=== PATIENT | male | born 1945 | race Caucasian/White ===

== ENCOUNTER → 2019-02-06 | Outpatient (CLI) | payer MEDICARE, OTHER | END | disposition home or self-care (01) | LOC: LAB SRC 10:00 → LAB SHORT 10:00 | DX: J34.89 Other specified disorders of nose and nasal sinuses (principal) | CPT/HCPCS: 87070; 87077; 87147; 87186 ==

== ENCOUNTER 2024-11-07 10:10 | Inpatient (IN) | payer MEDICARE, OTHER ==
[~2024-11-07] VITALS: Ht 172.7 cm; Wt 101.5 kg
[~2024-11-07 10:10] MED LIST: ATOR40TA PO; Bisoprolol Fumar5 MG PO; CAND32 PO; ELIQUIS5 M2 PO; FURO40 PO; Imitrex25 MG PO; Inderal40 MG PO; LEVO-T50 MCG PO; ROPI.25 PO; SUMA25 PO
[2024-11-07 11:35] LABS: BASOPHILS ABSOLUTE AUTO 0.06 K/mm3 (0.00-0.23); BASOPHILS PERCENT AUTO 1 % (0-2); EOSINOPHILS ABSOLUTE AUTO 0.32 K/mm3 (0.00-0.68); EOSINOPHILS PERCENT AUTO 4 % (0-6); Hematocrit 45.1 % (37.0-53.0); IMMATURE GRAN ABSOLUTE AUTO 0.04 K/mm3 (0.00-0.10); IMMATURE GRAN PERCENT AUTO 1 % (0-1); LYMPHOCYTES ABSOLUTE AUTO 1.57 K/mm3 (0.84-5.20); LYMPHOCYTES PERCENT AUTO 18 % (21-46); MONOCYTES PERCENT AUTO 9 % (4-13); Mean Corpuscular HGB 29.3 pg (26.0-34.0); Mean Corpuscular HGB Conc 33.3 g/dL (31.5-36.5); Mean Corpuscular Volume 88 fL (80-100); Mean Platelet Volume 9.9 fL (9.1-12.4); NEUTROPHILS ABSOLUTE AUTO 5.99 K/mm3 (1.96-9.15); NEUTROPHILS PERCENT AUTO 68 % (41-73); Platelet Count 178 K/mm3 (150-400); RDW Coefficient Variation 14.6 % (11.7-14.2); RDW Standard Deviation 47.8 fL (35.1-46.3); Red Blood Cell Count 5.12 M/mm3 (4.30-5.90); White Blood Cell Count 8.78 K/mm3 (4.00-11.30)
[2024-11-07 11:57] LABS: Albumin, Blood 3.6 g/dL (3.4-5.0); Bilirubin, Total 0.7 mg/dL (0.1-1.0); Bun/Creatinine Ratio 18.2 (12.0-20.0); Calcium, Blood 9.5 mg/dL (8.5-10.1); Creatinine, Blood 1.1 mg/dL (0.60-1.20); Globulin, Blood 3.6 g/dL (2.2-4.0); Potassium, Blood 4.4 mmol/L (3.5-5.5); Total Protein, Blood 7.2 g/dL (6.4-8.2)
[2024-11-07] MEDS ORDERED: Bisacodyl 10 MG Supp PR PRN (14:05)
[2024-11-07] MEDS ORDERED: FLU VACC TS2024-25(6MOS UP)/PF 45 MCG/0.5 ML SYRINGE IM PRN (14:05)
[2024-11-07] MEDS ORDERED: TraZODone HCl 50 MG Tab PO PRN (14:05)
[2024-11-07] MEDS ORDERED: Magnesium Hydroxide Conc 10 ML UDC PO PRN (14:10)
[2024-11-07] MEDS ORDERED: Ondansetron 4 MG TAB PO PRN (14:10)
[2024-11-07] MEDS ORDERED: HydrALAZINE HCl 20 MG / ML 1ML Vial IV PRN (14:10)
[2024-11-07] MEDS ORDERED: CefTRIAXone Sodium 2,000 MG in NS 100 ML IV SCH (14:41)
[2024-11-07 14:59] LABS: International Normalized Ratio 1.04; Prothrombin Time Results 11.1 Sec (9.7-11.5)
[2024-11-07] MEDS ORDERED: Dose Adjust by Pharmacy XX STA (15:08)
[2024-11-07 16:05] VITALS: BP 153/105
[2024-11-07] MEDS ORDERED: EUTHYROX50 MCG PO (16:17)
[2024-11-07] MEDS ORDERED: ALBU90OI INH (16:20)
[2024-11-07] MEDS ORDERED: FURO40 PO (16:20)
--- NOTE | 2024-11-07 17:04 | NUR ---
ADMIT TO PCU 20: PATIENT ALERT AND ORIENTED X4. VERY TALKATIVE AND PLEASENT WITH STAFF. AT BEDSIDE FOR ADMISSION. UP TO RECLINER AT BEDSIDE. SBA FOR SAFETY. PATIENT ORIENTED TO ROOM/UNIT. PERRLA, GLASSES AT BEDSIDE. TELE SHOWINS AFLUTTER/V PACED WITH HR 70'S. SBP 140-150'S. DENIES CHEST PAIN/PRESSURE/PALPITATIONS. PPP. IV'S SALINE LOCKED AND IV ABX INFUSED. PPP. LLE EDEMA NOTED WITH REDNESS/WARMTH AND INTERMIT PAIN. CARDIOLOGY CONSULT CALLED IN BY THIS RN. PLAN TO START HEPARIN AT 1900 PER PHARMACY ORDERS. ON ROOM AIR SATING ABOVE 95%. LUNGS SOUNDS CLEAR WITH FINE CRACKLES IN BASES. PATIENT STATES HE CANNOT SLEEP LAYING DOWN AND FEELS SHORT OF BREATH WHEN MOVING AROUND. PATIENT HAS BEEN SLEEPING IN RECLINER AT HOME. TO BRING IN HOME CPAP. BOWEL TONES PRESENT. NPO AT THIS TIME PENDING CARDIOLOGY CONSULT. DENIES ISSUES WITH VOIDING. LAST BOWEL MOVEMENT THIS AM. USING URINAL TO VOID. DENIES ABDOMINAL PAIN/NAUSEA. PATIENT STATES HE SAW SKIN DOCTOR TODAY WHICH THEN HE WAS REFFERED TO HOSPITAL. LLE RED, SWOLLEN WARM AND PAINFUL. HISTORY OF SKIN CANCER TO LEFT MEDIAL CALF. SMALL PEA SIZED HEALING WOUND TO LEFT CALF FROM SKIN CANCER EXCISION. RIGHT LE WRAPPED BY SKIN DOCTOR TODAY WITH UNNA BOOT. SEE PAPER CHART FOR PHOTO. THIS RN PLACED CALL TO DR. KC UPON ADMIT TO PCU TO CLARIFY ORDERS. PLAN FOR 1,800 ML/DAY FLUID RESTRICTION, CARDIOLOGY CONSULT AND THIS RN UPDATED ON COMPLETE MED REC. CALL LIGHT IN REACH. PATIENT DENIES NEEDS AT THIS TIME.
[2024-11-07] MEDS ORDERED: Bumetanide 0.25 MG/ML 4ML ViaL IV SCH (18:00)
--- NOTE | 2024-11-07 18:41 | NUR ---
SHIFT SUMMARY: NO ACUTE CHANGES, SEE PREVIOUS NOTE. PATIENT REMAINS ALERT AND ORIENTED. UP TO BATHROOM WITH SBA. USING URINAL TO VOID. REMAINS NPO, PENDING CARDIOLOGY CONSULT. ON ROOM AIR, TELE SHOWINS AFLUTTER V PACED. DENIES CHEST PAIN/PRESSURE/PALPITATIONS. UP IN RECLINER AT THIS TIME. PLAN TO START HEPARIN AT 1900 PER PHARMACY ORDERS. IV ABX INFUSED. SEE CHART FOR PHOTOS OF RLE. FLUID RESTRICTION ORDERS IN PLACE ONCE PATIENT IS ABLE TO DRINK. CALL LIGHT IN REACH. DENIES NEEDS AT THIS TIME.
[2024-11-07] MEDS ORDERED: Heparin Sodium,Porcine/0.5 NS 500 ML IV SCH (19:00)
[2024-11-07 20:09] VITALS: BP 166/96
[2024-11-07] MEDS ORDERED: Acetaminophen 325 MG TABLET PO PRN (20:45)
[2024-11-07] MEDS ORDERED: Famotidine 20 MG Tab PO SCH (21:00)
[2024-11-07] MEDS ORDERED: Lactobacil 2-S.Thermo-Bifido 1 1 Cap PO SCH (21:00)
[2024-11-07] MEDS ORDERED: rOPINIRole HCl 1 MG Tab PO SCH (21:00)
[2024-11-07] MEDS ORDERED: Metoprolol Tartrate 25 MG Tab PO SCH (21:00)
[2024-11-08 00:39] VITALS: BP 126/87
[2024-11-08 01:12] LABS: Hematocrit 44.7 % (37.0-53.0); Hemoglobin 14.8 g/dL (13.5-17.5); Mean Corpuscular HGB 29.2 pg (26.0-34.0); Mean Corpuscular HGB Conc 33.1 g/dL (31.5-36.5); Mean Corpuscular Volume 88 fL (80-100); Mean Platelet Volume 10.1 fL (9.1-12.4); Platelet Count 174 K/mm3 (150-400); RDW Coefficient Variation 14.7 % (11.7-14.2); RDW Standard Deviation 46.9 fL (35.1-46.3); Red Blood Cell Count 5.07 M/mm3 (4.30-5.90); White Blood Cell Count 7.86 K/mm3 (4.00-11.30)
[2024-11-08 01:46] LABS: Alanine Aminotransfer (ALT/SGP 40 U/L (12-78); Albumin, Blood 3.4 g/dL (3.4-5.0); Alk Phos 97 U/L (50-136); Anion Gap 12 mmol/L (3-11); Aspartate Aminotrans (AST/SGOT 24 U/L (12-37); Blood Urea Nitrogen 17 mg/dL (8-24); Bun/Creatinine Ratio 15.6 (12.0-20.0); CHOL/HDL RATIO 2.3; CO2, Blood 25 mmol/L (21-32); Calcium, Blood 8.6 mg/dL (8.5-10.1); Chloride, Blood 107 mmol/L (98-108); Cholesterol 97 mg/dL (50-200); Creatinine, Blood 1.09 mg/dL (0.60-1.20); Globulin, Blood 3.5 g/dL (2.2-4.0); Glomerular Filtration Rate 69 (60-); Glucose, Blood 123 mg/dL (70-99); HDL Cholesterol 42 mg/dL (>39); LDL/HDL RATIO 0.9; Low Density Lipoprotein Chol 39 mg/dL (0-110); Sodium, Blood 140 mmol/L (136-145); Total Protein, Blood 6.9 g/dL (6.4-8.2); Triglycerides 82 mg/dL (30-160); Very Low Density Lipoprot Chol 16 mg/dL (6-32)
[2024-11-08] MEDS ORDERED: Dose Adjust by Pharmacy XX STA ×3 (02:00→16:04)
[2024-11-08 04:10] VITALS: BP 130/75
--- NOTE | 2024-11-08 05:04 | NUR ---
SHIFT SUMMARY THIS RN ASSUMED CARE OF PATIENT AT 1900. PT A&O X4. ABLE TO MAKE NEEDS KNOWN. CALLING APPROPRIATELY. PT AFLUTTER ON MONITOR WITH VPACED BEATS, OCCASIONAL AV PACED BEATS. PT DENIES CHEST PAIN/PRESSURE. BLE EDEMA AND REDNESS NOTED. RLE WRAPPED YESTERDAY PRIOR TO ARRIVAL. PT WAS GIVEN DIURETIC PRIOR TO NOC SHIFT. GOOD OUTPUT NOTED. OTHER VITALS STABLE. ON RA. PT ENDORSES SOB WITH EXERTION, STATES THAT HAS BEEN GOING ON FOR ABOUT A YEAR BUT HAS WORSENED IN THE PAST WEEK OR SO. TROPONIN TRENDED TO [facility]. HEP GTT INFUSING PER EMAR/PHARMACY. PT AMBULATING TO BATHROOM WITH SBA TO HELP MANAGE IV POLE. CALL PLACED TO MD MCNEIL SEVERAL TIMES THIS SHIFT D/T PT C/O MIGRAINE. MD MCNEIL DID NOT WANT PT'S HOME MIGRAINE MEDICATION ORDERED D/T POSSIBLE COMPLICATIONS. TYLENOL ORDER PLACED PER ; PT REPORTED NO RELIEF. ZOFRAN ORDER PLACED PER . PT GIVEN ICE PACK. INCREASED TYLENOL DOSE. PT DENIES RELIEF AT THIS TIME. MD MCNEIL NOTIFIED ABOUT CONTINUED HEADACHE. NO NEW ORDERS AT THIS TIME. PT HAS BEEN NPO SINCE MIDNIGHT AWAITING CARDIOLOGY CONSULT/PLAN. BED IN LOWEST POSITION AND CALL LIGHT WITHIN REACH. THIS RN [id number].
[2024-11-08] MEDS ORDERED: Acetaminophen 500 MG Tab PO PRN (05:15)
[2024-11-08 08:20] VITALS: BP 148/92
[2024-11-08] MEDS ORDERED: Atorvastatin 40 MG Tab PO SCH (09:00)
[2024-11-08] MEDS ORDERED: Losartan Potassium 25 MG Tab PO SCH (09:00)
[2024-11-08 11:02] VITALS: BP 145/94
--- NOTE | 2024-11-08 11:04 | NUR ---
RIGHT MAGGI BOOT REMOVED PER DR. KC. THIGH HIGH ANTONIO HOSE PLACED AND SCD'S PLACED PER DR. FARAH.
[2024-11-08] MEDS ORDERED: Aminophylline 250MG / 10ML 10 ML Vial ONE (13:00)
[2024-11-08] MEDS ORDERED: Regadenoson 0.4 MG/5 ML SYRINGE ONE (13:00)
[2024-11-08] MEDS ORDERED: Bumetanide 0.25 MG/ML 4ML ViaL IV SCH (14:00)
[2024-11-08] MEDS ORDERED: TRAM50 PO (14:07)
[2024-11-08 16:25] VITALS: BP 157/81
--- NOTE | 2024-11-08 16:59 | NUR ---
SHIFT SUMMARY THE PT IS A&OX4, IND IN THE ROOM, AND IS ABLE TO MAKE HIS NEEDS KNOWN. THE PT WAS SEEN BY DR. FARAH AND HAD A STRESS TEST TODAY. ON TELE THE PT HAS BEEN AFLUTTER/ PACED 80'S-100'S. BP STABLE. HE HAS BEEN ON RA W/ SP02 >93%. THE PT DENIES ANY SOB. THE PT HAS BEEN ON 1,800C FLUID RESTRICTION, AND HAS NEEDED ADDITIONAL EDUCATION ON CARDIAC DIETS AND FLUIDS CONSUMPTION W/ HEART FAILURE. THE PT DOES HAVE CHRONIC MIGRAINES, BUT WAS TOLD BY DR. FARAH HE CAN NO TAKE HIS MIGRAIN MEDICATION BECAUSE IT IS CONTRAINDICATED WITH HEART FAILURE. DR. FARAH HAD AN EXTENSIVE CONVERSATION WITH THE PT IN [facility] TO CAFFINE W/D MIGRAINS AND TALKED WITH THE PT ABOUT CUTTING BACK HIS CAFFINE. PT IS RECIEVING TYLENOL 1,000MG Q8 PER EMAR TO HELP. SEE NOTES FOR ANY UPDATES.
--- NOTE | 2024-11-08 20:02 | NUR ---
START OF SHIFT PT RESTING COMFORTABLY IN BED. PT STATES PRESSLEY IS STILL PRESENT. PT HAS NO OTHER COMPLAINTS. PT ON RA ON HEPARIN GTT. THIS RN ASSUMED CARE AT APPROXIMATELY 1915. WILL CONTINUE PLAN OF CARE.
[2024-11-08 20:36] VITALS: BP 124/86
[2024-11-09 01:09] VITALS: BP 133/88
[2024-11-09 04:08] VITALS: BP 129/78
--- NOTE | 2024-11-09 05:34 | NUR ---
SHIFT SUMMARY PT AMBULATED HALLWAY 3-4X. PT STATED STILL HAS MILD PRESSLEY. PT REMAINS IN AFLUTTER. HEPARIN GTT CONTINUING. NO ACUTE EVENTS OVER NIGHT.
[2024-11-09 06:14] LABS: Hematocrit 44.9 % (37.0-53.0); Hemoglobin 14.7 g/dL (13.5-17.5); Mean Corpuscular HGB 28.8 pg (26.0-34.0); Mean Corpuscular HGB Conc 32.7 g/dL (31.5-36.5); Mean Corpuscular Volume 88 fL (80-100); Mean Platelet Volume 10.2 fL (9.1-12.4); Platelet Count 183 K/mm3 (150-400); RDW Coefficient Variation 14.6 % (11.7-14.2); RDW Standard Deviation 46.4 fL (35.1-46.3); Red Blood Cell Count 5.11 M/mm3 (4.30-5.90); White Blood Cell Count 8.07 K/mm3 (4.00-11.30)
[2024-11-09 06:43] LABS: Bun/Creatinine Ratio 17.7 (12.0-20.0); Calcium, Blood 9.1 mg/dL (8.5-10.1); Creatinine, Blood 1.41 mg/dL (0.60-1.20); Magnesium, Blood 2.3 mg/dL (1.6-2.4); Potassium, Blood 3.9 mmol/L (3.5-5.5)
[2024-11-09 07:27] VITALS: BP 148/99
[2024-11-09] MEDS ORDERED: Dose Adjust by Pharmacy XX STA (07:32)
[2024-11-09] MEDS ORDERED: Metoprolol Tartrate 50 MG Tab PO SCH (09:00)
[2024-11-09] MEDS ORDERED: Furosemide 20 MG Tab PO SCH (09:00)
[2024-11-09] MEDS ORDERED: Apixaban 5 MG Tab PO SCH (10:00)
[2024-11-09 10:58] VITALS: BP 141/80
[2024-11-09] MEDS ORDERED: CEPH500 PO (11:07)
[2024-11-09] MEDS ORDERED: Famotidine 20 MG Tab PO SCH (21:00)
== END 2024-11-09 12:07 | disposition home or self-care (01) | DRG 280 ==
LOC: ER 10:10 → PCU 14:03
PROVIDERS: Physician Assistant; Student in an Organized Health Care Education/Training Program; ADMIT Hospitalist
DX: I11.0 Hypertensive heart disease with heart failure (principal); I50.33 Acute on chronic diastolic (congestive) heart failure; I21.A1 Myocardial infarction type 2; L03.115 Cellulitis of right lower limb; I48.20 Chronic atrial fibrillation, unspecified; E03.9 Hypothyroidism, unspecified; G47.30 Sleep apnea, unspecified; G25.81 Restless legs syndrome; Z79.01 Long term (current) use of anticoagulants; Z79.899 Other long term (current) drug therapy; Z91.040 Latex allergy status; Z88.8 Allergy status to other drugs, medicaments and biological substances; Z85.46 Personal history of malignant neoplasm of prostate; Z90.49 Acquired absence of other specified parts of digestive tract; Z98.42 Cataract extraction status, left eye; Z98.41 Cataract extraction status, right eye; Z95.0 Presence of cardiac pacemaker; Z98.890 Other specified postprocedural states; Z90.79 Acquired absence of other genital organ(s); Z85.828 Personal history of other malignant neoplasm of skin
CPT/HCPCS: 36415; 71046; 78452; 80048; 80053; 80061; 83735; 83880; 84443; 84484; 85025; 85027; 85610; 85730; 93005; 93010; 93017; 94762; A9270; A9500; J0280; J0696; J1644; J2785